=== PATIENT | male | born 1980 | race African-American/Black ===

== ENCOUNTER → 2016-09-19 | Outpatient (CLI) | payer BC ==
--- NOTE | 2016-09-19 10:41 | DIAGNOSTIC IMAGING REPORT ---
KUB CLINICAL HISTORY: R30.0 [id number] COMPARISON STUDY: No previous studies for comparison. FINDINGS: Possible proximal right ureteral calculus. Dimensions are 5 x 2 mm. Overlying bowel content is an additional diagnostic possibility. Several pelvic vascular calcifications. Nonobstructive bowel pattern. IMPRESSION: Possible proximal right ureteral calculus measuring 5 x 2 mm Electronically signed by: Andrew Bell M.D. 09/19/2016 10:40 AM Dictated Date/Time: 09/19/2016 10:39 AM
== END | disposition home or self-care (01) ==
LOC: C.RAD1850 10:21
PROVIDERS: ATTEND Nurse Practitioner Family
DX: R30.0 Dysuria (principal)

== ENCOUNTER → 2016-09-21 | Outpatient (CLI) | payer BC ==
--- NOTE | 2016-09-21 13:15 | DIAGNOSTIC IMAGING REPORT ---
CT SCAN OF THE ABDOMEN AND PELVIS WITHOUT CONTRAST CLINICAL HISTORY: Nephrolithiasis. Lower pelvic pain. Dysuria. COMPARISON STUDY: KUB dated 09/19/2016 TECHNIQUE: CT scan of the abdomen and pelvis was performed from the lung bases to the proximal femurs. Images are reviewed in the axial, sagittal, and coronal planes. IV contrast was not administered for this examination. CT DOSE: 985.52 mGycm FINDINGS: Lower chest: The heart is normal in size and configuration, without pericardial effusion. The lung bases and pleural spaces are clear. Liver: The unenhanced liver is normal in size, contour, and attenuation. There is no intrahepatic biliary ductal dilatation. Gallbladder: Unremarkable. Spleen: Normal in size and attenuation. Pancreas: Unremarkable. Adrenal glands: Unremarkable. Kidneys: No renal, ureteral, or bladder calculi are visualized. Bowel: There are no transition zones indicate bowel obstruction. The appendix appears normal. There is no acute diverticulitis. Peritoneum: There is no intraperitoneal free air or abdominal ascites. Vasculature: The abdominal aorta is normal in course and caliber. Adenopathy: None. Pelvic viscera: The bladder, and pelvic viscera are unremarkable. Skeletal structures: There is mild rectus diastases. IMPRESSION: 1. No acute abdominal or pelvic findings 2. No evidence of bowel obstruction. No evidence of free air 3. Normal appendix 4. No renal, ureteral, or bladder calculi identified. Electronically signed by: Jesus Reyes M.D. 09/21/2016 1:13 PM Dictated Date/Time: 09/21/2016 1:10 PM
== END | disposition home or self-care (01) ==
LOC: C.CTS 12:38
PROVIDERS: ATTEND Nurse Practitioner Family
DX: N20.0 Calculus of kidney (principal)